=== PATIENT | male | born 1960 | race Caucasian/White ===

== ENCOUNTER 2017-03-21 08:37 | Outpatient (CLI) | payer MEDICAID ==
--- NOTE | ~2017-03-21 | HEMODYNAMI ---
PATIENT:ARTUR CLAIRE MEDICAL RECORD: [id number] : 60 LOCATION:[facility] ADMISSION DATE: 03/21/17 Generatedon:03/21/201710:48 Patient name: ARTUR CLAIRE Patient #: [id number] : 1960 Date of study: 03/21/2017 Page: Of Hemodynamic Procedure Report Patient Data Patient Demographics Procedure consent was obtained First Name: ARTUR Gender: Male Last Name: ALETHEA : 1960 Patient #: [id number] Age: 56 year(s) Race: SSN: [id number] Additional ID: [id number] Contact details Address: [address] [place] [address] ROAD State: [place] City: [place] Zip code: [address] Admission Admission Data Admission Date: 03/21/2017 Admission Time: 8:37 Arrival Date: 03/21/2017 Arrival Time: 10:30 Admit Source: Other Insurance Payor: Private health insurance Height (in.): 68.9 BSA: 1.79 (m2) Height (cm.): 175 BMI: 21.22 (kg/m2) Weight (lbs.): 143.3 Weight (kg.): 65 Lab Results Lab Result Date: 03/21/2017 Lab Result Time: 0:00 Biochemistry Name Units Result Min Max BUN mg/dl 11 --(-*--)-- 7 18 Creatinine mg/dl 1 --(--*-)-- 0.6 1.3 CBC Name Units Result Min Max Hemoglobin g/dl 13.9 --(*---)-- 13.5 17.5 Procedure Procedure Types Cath Procedure Diagnostic Procedure [facility] w/Coronaries Miscellaneous Procedures Moderate Sedation up to 15 minutes Procedure Description Procedure Date Procedure Date: 03/21/2017 Procedure Start Time: 10:39 Procedure End Time: 10:44 Procedure Staff Name Function Matt Walker MD Performing Physician Mahi Hurt RT Scrub Coy Upton RN Nurse Edilia Davidson RT Monitor Procedure Data Cath Procedure Fluoroscopy Diagnostic fluoroscopy Total fluoroscopy Time: 0.6 time: 0.6 min min Diagnostic fluoroscopy Total fluoroscopy dose: 117 dose: 117 mGy mGy Contrast Material Contrast Material Type Amount (ml) Isovue 300 35 Entry Location Entry Primary Successful Side Size Upsize Upsize Entry Closure Huitron ccessful Closure Location (Fr) 1 (Fr) 2 (Fr) Remarks Device Remarks Radial Right 6 Fr Mechanical artery Short Compression Estimated blood loss: 5 ml Diagnostic catheters Device Type Used For End Catheter Placement Diagnostic Terumo 5Fr Multi-vessel [place] 110cm catheter Angiography Procedure Complications No complications Procedure Medications Medication Administration Route Dosage Oxygen NC 2 l/min Heparin Flush Bag added to field 2 bags (1000units/500ml NS) 0.9% NaCl I.V. 100 ml/hr Radial Cocktail added to field 1 syringe (Verapomil 2mg/Nitro 400mcg/Heparin 1500units) Fentanyl I.V. 50 mcg Versed I.V. 1 mg Radial Cocktail I.A. 1 syringe (Verapomil 2mg/Nitro 400mcg/Heparin 1500units) Fentanyl I.V. 50 mcg Versed I.V. 1 mg Hemodynamics Rest BSA: 1.79 (m2) HGB: 13.9 (g/dl) O2 Consumption: Estimated: 204.99 (ml/min) O2 Co nsumption indexed: Estimated:114.52 (ml/min/m) Heart Rate: 60 (bpm) Pressure Samples Time Site Value (mmHg) Purpose Heart Use Rate(bpm) 10:41 LV 109/15,68 Snapshot 72 Snapshots Pre Cath Intra NCS Post Cath Vital Signs Time Heart Resp SPO2 etCO2 NIBP Rhythm Pain Sedation Rate (ipm) (%) (mmHg) (mmHg) Status Level (bpm) 10:29:09 59 17 100 0 122/78(94) NSR 0 (11) 10(A) , No pain 10:33:21 58 16 98 0 103/64(79) NSR 0 (11) 10(A) , No pain 10:37:25 53 16 99 44.5 105/69(80) NSR 0 (11) 10(A) , No pain 10:41:31 69 16 99 23.4 91/63(76) NSR 0 (11) 9(A) , No pain 10:47:34 62 17 97 44.5 100/68(86) NSR 0 (11) 9(A) , No pain Medications Time Medication Route Dose Verified Delivered Reason Notes Effectiveness by by 10:28:18 Oxygen NC 2 l/min Matt Cespedes Per Aaron Upton RN physician 10:28:26 Heparin Flush added 2 bags Matt Cespedes used for Bag to Aaron Upton RN procedure (1000units/500ml field NS) 10:28:36 0.9% NaCl I.V. 100 Matt Cespedes Per ml/hr Aaron Upton RN physician 10:28:43 Radial Cocktail added 1 Matt Cespedes used for (Verapomil to syringe Aaron Upton RN procedure 2mg/Nitro field 400mcg/Heparin 1500units) 10:37:33 Fentanyl I.V. 50 mcg Matt Cespedes for sedation Aaron Upton RN 10:37:39 Versed I.V. 1 mg Matt Cespedes for sedation Aaron Upton RN 10:40:43 Radial Cocktail I.A. 1 Matt Gutierrez for (Verapomil syringe Aaron Walker MD vasodilation 2mg/Nitro 400mcg/Heparin 1500units) 10:40:48 Fentanyl I.V. 50 mcg Matt Cespedes for sedation Aaron Upton RN 10:40:53 Versed I.V. 1 mg Matt Cespedes for sedation Aaron Upton RN Procedure Log Time Note 10:04:53 Coy Upton RN sent for patient. Start room use. 10:14:23 Informed consent obtained and on chart 10::27 Diagnostic Cath Status : Elective 10:14:54 Time tracking: Regular hours ::59 Plan of Care:Hemodynamics will remain stable., Cardiac rhythm will remain stable., Comfort level will be maintained., Respiratory function will remain adequate., Patient/ family verbilizes understanding of procedure., Procedure tolerated without complication., Recovers from procedure without complications.. 10::59 Vital chart was started 10:28:18 Oxygen 2 l/min NC was administered by Coy Upton RN; Per physician; 10:28:26 Heparin Flush Bag (1000units/500ml NS) 2 bags added to field was administered by Coy Upton RN; used for procedure; 10:28:36 0.9% NaCl 100 ml/hr I.V. was administered by Coy Upton RN; Per physician; 10:28:43 Radial Cocktail (Verapomil 2mg/Nitro 400mcg/Heparin 1500units) 1 syringe added to field was administered by Coy Upton RN; used for procedure; 10:29:59 Patient received from Pre/Post Procedure Room to CCL 2 Alert and oriented. Tansferred to table in Supine position. 10:30:00 Warm blankets applied, and galilea hugger turned on for patient comfort. 10:30:00 Correct patient and procedure confirmed by team. 10:30:01 ECG and BP/O2 sat monitors applied to patient. 10:30:02 Baseline sample Acquired. 10:30:05 Rhythm: sinus rhythm 10:30:07 Full Disclosure recording started 10:30:25 H&P Date Dictated: 03/21/2017 New H&P dictated by physician.. 10:30:26 Pre-procedure instructions explained to patient. 10:30:27 Pre-op teaching completed and patient verbalized understanding. 10:30:28 Family in waiting room. 10:30:29 Patient NPO since Midnight. 10:30:41 Is the patient allergic to Iodine/contrast media? No. 10:30:42 Was the patient premedicated? No 10:31:09 Is patient on blood thinner?No 10:31:11 Patient diabetic? No. 10:31:13 Previous problem with sedation/anesthesia? No ? 10:31:15 Snore? Yes 10:31:16 Sleep apnea? No 10:31:17 Deviated septum? No 10:31:18 Opens mouth fully? Yes 10:31:19 Sticks out tongue? Yes 10:31:23 Airway obstruction? No ? 10:31:27 Dentures? Yes IN TIGHT 10:31:30 Pre procedure: right dorsailis pedis pulse 2+ Normal; easily identifiable; not easily obliterated 10:31:32 Pre procedure: left dorsailis pedis pulse 2+ Normal; easily identifiable; not easily obliterated 10:31:34 Patient pain scale 0/10 ?. 10:31:39 IV patent on arrival in left forearm with 0.9% NaCl at [facility]. 10:34:21 Lab Result : BUN 11 mg/dl 10:34:21 Lab Result : Creatinine 1 mg/dl 10:34:21 Lab Result : Hemoglobin 13.9 g/dl 10:34:24 Lab results completed and on chart. 10:34:29 Right Radial & Right Groin area was prepped with chlora-prep and draped in sterile fashion 10:34:30 Alarms reviewed by R. N. 10:34:30 Sharps counted by scrub and verified by R.N. 10:34:31 Physician arrived 10:34:31 --------ALL STOP TIME OUT------ 10:34:32 Final Timeout: patient, procedure, and site verified with staff and physician. All members of the team are in agreement. 10:34:33 Right Radial & Right Groin site verified by team. 10:34:36 Physical assessment completed. ASA score P 2 - A patient with mild systemic disease as per Matt Walker MD. 10:34:41 Sedation plan: IV Moderate Sedation Versed, Fentanyl 10:34:44 Use device set Radial Dx 10:34:45 Acist Syringe opened to sterile field. 10:34:45 Medline Cath Pack opened to sterile field. 10:34:45 Bag Decanter opened to sterile field. 10:34:46 Terumo 6Fr Slender Glidesheath opened to sterile field. 10:34:46 St Candelario 260cm J .035 wire opened to sterile field. 10:34:46 Acist Hand Control opened to sterile field. 10:34:47 Acist Manifold opened to sterile field. 10:34:47 Tegaderm 4 x 4 opened to sterile field. 10:34:48 MBrace Wrist Support opened to sterile field. 10:35:12 Zero performed for pressure channel P1 10:35:34 Admit Source: Other 10:35:39 Arrival Date: 03/21/2017 10:30:00 AM 10:35:45 Insurance Payor : Private health insurance 10:35:57 Patient Height : 68.9 inches 10:36:01 Patient Weight : 143.3 lbs 10:37:33 Fentanyl 50 mcg I.V. was administered by Coy Upton RN; for sedation; 10:37:39 Versed 1 mg I.V. was administered by Coy Upton RN; for sedation; 10:39:41 Procedure started. 10:39:45 Local anesthetic to right radial artery with Lidocaine 2% by Matt Walker MD.INITIAL ACCESS ONLY 10:39:52 A 6 Fr Short sheath was inserted into the Right Radial artery 10:40:43 Radial Cocktail (Verapomil 2mg/Nitro 400mcg/Heparin 1500units) 1 syringe I.A. was administered by Matt Walker MD; for vasodilation; 10:40:43 A Diagnostic Terumo 5Fr [place] 110cm catheter was advanced over the wire and used for Multi-vessel Angiography. 10:40:48 Fentanyl 50 mcg I.V. was administered by Coy Upton RN; for sedation; 10:40:53 Versed 1 mg I.V. was administered by Coy Upton RN; for sedation; 10:41:07 LV hemodynamics recorded. 10:41:08 LV gram done using HENSLEY 10:41:10 Injector settings: Ml/sec: 5, Volume: 15, 10:41:19 EF : 55 % 10:41:25 LCA angiography performed. 10:41:31 Injector settings: Ml/sec: 3, Volume: 6, 10:42:08 RCA angiography performed. 10:42:14 Injector settings: Ml/sec: 3, Volume: 6, 10:42:17 Catheter removed. 10:42:40 Terumo TR Band Standard opened to sterile field. 10:42:49 Sheath removed intact; hemostasis achieved with Mechanical Compression to the Right Radial artery. 10:42:51 Procedure ended.(Physican Out) 10:43:02 Fluoroscopy time 00.60 minutes. 10:43:06 Fluoroscopy dose: 117 mGy 10:43:06 Flurop Dose total: 117 10:43:10 Contrast amount:Isovue 300 35ml. 10:43:18 Sharps counted by scrub and verified by R.N. 10:43:19 Insertion/operative site no bleeding no hematoma. 10:43:33 Post right radial artery:stable 10:43:34 Post Procedure Pulses reassessed and unchanged 10:43:36 Post procedure rhythm: unchanged. 10:43:38 Estimated blood loss: 5 ml 10:43:40 Post procedure instruction explained to patient.Patient verbalizes understanding. 10:43:40 Patient needs reinforcement of post procedure teaching. 10:43:46 Procedure type changed to Cath procedure, Diagnostic procedure, LHC, LHC w/Coronaries, Miscellaneous Procedures, Moderate Sedation up to 15 minutes 10:43:47 Procedure and supply charges have been captured, reviewed, submitted and are correct. 10:43:52 Procedure Complication : No complications 10:43:54 Vital chart was stopped 10:43:55 See physician's report for complete and final results. 10:43:59 Report given to Pre/Post Procedure Room. 10:44:01 Patient transfered to Pre/Post Procedure Room with Stretcher. 10:44:03 Procedure ended. 10:44:03 Full Disclosure recording stopped 10:44:06 End room use (Document Last) Device Usage Item Name Manufacture Quantity Catalog Hospital Part Current Minimal Lot# / Number Charge Number Stock Stock Serial# Code Acist Acist 1 60820 809940 973609 225761 20 Syringe Medical [employer] Inc Medline Cardinal 1 [id number] 325507 53486 447880 5 Cath Pack Health Bag Microtek 1 2002S 726933 60653 168580 5 [employer] Terumo 6Fr Terumo 1 [id number] 815457 546918 759901 [address] St Candelario 1 057082 071579 918757 540188 30 260cm J .035 wire Acist Hand Acist 1 76340 382765 923838 790347 5 Control Medical Systems Inc Acist Acist 1 27180 303885 406094 870920 5 Manifold Medical Systems Inc Tegaderm 4 3M 1 1626W 737093 373939 751812 5 x 4 MBrace Advanced 1 140-0250-00 701390 54412 207375 5 Wrist Vascular Support Dynamics Diagnostic Terumo 1 40-2990 761418 388989 175982 5 Terumo 5Fr [place] 110cm catheter Terumo TR Terumo 1 [id number] 780371 309346 759352 40 Band Standard Signature Audit [place] Stage Time Signature Unsigned Intra-Procedure 03/21/2017 Edilia Davidson 10:48:24 AM RT(R) Signatures Monitor : Edilia Davidson RT Signature : Date : Time : [facility] [address] [place] [address]
[2017-03-21 09:03] VITALS: BP 133/80; BMI 21.4
[2017-03-21 09:13] LABS: BASOPHILS 0.4 % (0-2); EOSINOPHILS 8.4 % (0-7); HEMOGLOBIN 13.9 g/dL (13.5-17.5); IMMATURE GRANULOCYTES 0.4 % (0-5); LYMPHOCYTES 37.5 % (15-50); MCH 30.5 pg (26.0-34.0); MCHC 33.1 g/dL (31.0-37.0); MCV 92.1 fL (80.0-100.0); MEAN PLATELET VOLUME 9.9 fL (7.4-10.4); MONOCYTES 7.6 % (2-11); NEUTROPHILS 45.7 % (40-80); PLATELET COUNT 229 10x3/uL (130-400); RBC 4.56 10x6/uL (4.20-6.10); RDW 12.7 % (11.5-14.5); WBC 7.5 10x3/uL (4.8-10.8)
[2017-03-21 09:28] LABS: CALC OSMOLALITY 279 mosm/kg (275-300); CALCIUM 9.4 mg/dL (8.5-10.1); CARBON DIOXIDE 28.3 mmol/L (21.0-32.0); CHLORIDE - SERUM 106 mmol/L (98-107); GLUCOSE 102 mg/dL (74-106); POTASSIUM - SERUM 3.9 mmol/L (3.5-5.1); SODIUM 141 mmol/L (136-145); UREA NITROGEN 11 mg/dL (7-18); eGFR NON AFRICAN AMERICAN 82 mL/min (90-120)
--- NOTE | 2017-03-21 11:16 | NUR ---
1115 HOB ELEVATED TO 30DEGREES, ROOM AIR WITH NO RESP. DISTRESS. SBRADY, RATE 53 W NO C/O CHEST PAIN. PULSES PALP X 4. R WRIST TR BAND C/D/I W NO HEMATOMA OR BLEEDING. WILL CONTINUE TO MONITOR CLOSELY. AT BEDSIDE. PATIENT DENIES NEEDS AT THIS TIME.
--- NOTE | 2017-03-21 11:49 | NUR ---
1145 PATIENT AWAKE, ROOM AIR. SBRADY, RATE 53 WITH NO C/O CHEST PAIN. PULSES PALP X 4. R WRIST TR BAND REMAINS C/D/I WITH NO HEMATOMA OR BLEEDING. SIPPING SODA AND EATING TURKEY SANDWICH WITH NO C/O NAUSEA. AT SIDE.
--- NOTE | 2017-03-21 12:26 | NUR ---
1215 DECREASED PRESSURE TO R WRIST TR BAND BY 2CC, WILL MONITOR FOR BLEEDING. ALL VITALS WNL.
--- NOTE | 2017-03-21 12:45 | NUR ---
SPOKE WITH DAUGHTER ON PHONE REGARDING FINDINGS FROM TODAYS PROCEDURE AT PATIENT REQUEST. PIV REMOVED FROM LEFT FOREARM WITH BANDAID APPLIED. ANOTHER 2CC AIR REMOVED FROM R WRIST TR BAND, CONTINUES TO BE C/D/I. UP TO BEDSIDE TO DRESS WITH ASSIST FROM .
--- NOTE | 2017-03-21 13:52 | NUR ---
TR BAND REMOVED FROM R WRIST, TEGADERM AND 2X2 APPLIED TO AREA. D/C INSTRUCTIONS DISCUSSED WITH PATIENT AND AT BEDSIDE. WHEELED OUT VIA WHEELCHAIR BY CATH TEAM.
--- NOTE | 2017-03-30 16:56 | OP ---
PATIENT NAME: ARTUR CLAIRE MEDICAL RECORD: [id number] :60 LOCATION:[facility] ADMISSION DATE: SURGEON: JOSUÉ LEMA MD DATE OF OPERATION: 03/21/2017 PROCEDURES: 1. Left heart catheterization. 2. Selective coronary angiography. 3. Left ventriculogram. INDICATION: Chest pain compatible with angina and abnormal nuclear stress test. PROCEDURE IN DETAIL: After informed consent was obtained and after detailed explanation of risks and benefits as well as alternative therapies, the patient elected to proceed with angiogram and heart catheterization. The right radial area was prepped and draped in normal sterile fashion. The right radial artery was cannulated via modified Seldinger technique with placement of a 5-Kiswahili sheath. All catheters were exchanged through this sheath. FINDINGS: The left ventriculogram was performed in standard 30-degree HENSLEY view, reveals good cardiac wall motion throughout all segments. Overall ejection fraction is estimated at 60%. SELECTIVE CORONARY ANGIOGRAPHY: Left main, left anterior descending, left circumflex, and right coronary artery are all smooth-walled vessels with no angiographic evidence of coronary artery disease. OVERALL IMPRESSION: 1. No angiographic evidence of coronary artery disease. 2. Normal left heart pressures. 3. Normal left ventricular systolic function. Chest pain is noncardiac in etiology. Stress test is false positive. No further workup needs to be ascertained. TRANSINT:[id number] Voice Confirmation ID: [id number] DOCUMENT ID: [id number] JOSUÉ LEMA MD at 1656 CC: [id number] DICTATION DATE: 03/21/17 1045 CUSTODIAL OPERATIONS MANAGER: 03/21/17 1210 DEP CLI 03/21/17 [place] [id number] [place] [id number]
--- NOTE | 2017-03-30 16:56 | HP ---
PATIENT: ARTUR OLMOS MEDICAL RECORD: [id number] ACCOUNT: [id number] LOCATION:[facility] : 60 ADMISSION DATE: 03/21/17 HISTORY AND PHYSICAL EXAMINATION DATE OF SERVICE: 03/21/2017 DIAGNOSES: 1. Angina. 2. Abnormal nuclear stress test. 3. Family history of coronary artery disease. HISTORY OF PRESENT ILLNESS: Mr. Olmos presents with increasing episodes of chest pain, chest discomfort compatible with angina. He underwent risk stratification with stress testing, revealing inferior reversible ischemia. He is now brought for cardiac catheterization. PHYSICAL EXAMINATION: GENERAL APPEARANCE: Well-nourished, well-developed, appears stated age. Level of distress, comfortable. PSYCHIATRIC: Mental status, alert, normal affect. Orientation, oriented to time, place and person. EYES: Lids and conjunctiva, noninjected. No discharge, no pallor. ENT: Lips, teeth, gums, normal dentition. Oropharynx, no cyanosis, no pallor. NECK: Carotid arteries, bilateral normal upstroke, no bruits, no thrills. JUGULAR VEINS: No jugular venous pressure or distention. CERVICAL LYMPH NODES: Nontender, nonenlarged. THYROID: Not enlarged. Nontender. No nodules. LUNGS: Respiratory effort, unlabored. CHEST: Normal curvature. No thoracic deformity. No chest wall tenderness. Percussion, resonant. Auscultation, clear. No wheezes, no rales, no rhonchi. CARDIOVASCULAR: Precordial exam, nondisplaced. No heaves or pericardial thrills. Rate and rhythm, regular. Heart sounds, normal S1, normal S2. No S3, no gallop, no rub. Systolic murmur, not heard. Diastolic murmur, not heard. EXTREMITIES: No cyanosis, no edema. Peripheral pulses, full and equal in all extremities, except as noted. No bruits appreciated. ABDOMEN: Soft, nondistended. Normal aorta. No bruit. Nontender. No masses. Liver, nontender, no hepatomegaly. Spleen, nontender, no splenomegaly. MUSCULOSKELETAL: No joint tenderness. No joint swelling. No erythema. NEUROLOGICAL: Normal gait, normal strength, normal tone. SKIN: Warm and dry. REVIEW OF SYSTEMS: The patient reports easy bruising but reports no swollen glands. The patient reports no fever, no night sweats, no significant weight gain, no significant weight loss. No significant exercise tolerance. The patient reports no dry eyes, no irritation, no vision change. Patient reports no difficulty hearing and no ear pain. Patient reports no frequent nose bleeds or nose and sinus problems. Patient reports on arm pain on exertion. No shortness of breath while lying down. No history of heart murmur. Patient reports no cough, no wheezing or coughing up blood. Patient reports no abdominal pain, no vomiting. Normal appetite. No diarrhea and not vomiting blood. No nausea and no constipation. Patient reports no incontinence. No difficulty urinating. No hematuria. No increased frequency. Patient reports no muscle aches. No weakness, no arthralgias, no back pain. No swelling of the extremities. Patient reports no abnormal mole, no jaundice, no rashes. Reports HISTORY AND PHYSICAL [id number] ARTUR OLMOS no loss of consciousness. No weakness and no numbness. No seizures, dizziness, or headaches. The patient reports no depression, no sleep disturbance, feeling safe in a relationship and no alcohol abuse. Patient reports on fatigue. Reports no runny nose or sinus pressure. No itching, no hives, and no frequent sneezing. OVERALL IMPRESSION: Anginal symptomatology with abnormal nuclear stress test. There is a high likelihood of hemodynamically significant coronary artery disease. We will proceed with coronary angiography. Further care depends on findings of the angiography. TRANSINT:[id number] Voice Confirmation ID: [id number] DOCUMENT ID: [id number] JOSUÉ LEMA MD at 1656 CC: [id number] DICTATION DATE: 03/21/17831 STORAGE WHARFAGE CLERK: 03/21/17 0856 DEP CLI 03/21/17 [place] [id number] [place] [address]
== END 2017-03-21 13:00 | disposition home or self-care (01) ==
LOC: D.CATH 08:37
PROVIDERS: Internal Medicine Interventional Cardiology
DX: I20.9 Angina pectoris, unspecified (principal); R94.30 Abnormal result of cardiovascular function study, unspecified; Z82.49 Family history of ischemic heart disease and other diseases of the circulatory system; R07.9 Chest pain, unspecified; Z01.812 Encounter for preprocedural laboratory examination

== ENCOUNTER → 2017-12-04 14:56 | Outpatient (CLI) | payer SELFPAY | END | disposition home or self-care (01) | LOC: D.LABREF 14:56 | DX: R31.9 Hematuria, unspecified (principal) ==